=== PATIENT | female | born 1930 | race Caucasian/White ===

== ENCOUNTER 2016-09-05 22:52 | Emergency (ER) | payer OTHER, BC ==
[~2016-09-05] VITALS: Ht 160 cm; Wt 60.3 kg
[~2016-09-05 22:52] MED LIST: ACIDOPHILUS1 EAC3 PO; ADULT LOW DOSE81 MG OR; ADULT LOW DOSE81 MG PO; ANASPAZ0.125 MG PO; ANASPAZ0.125 MG SL; ASPIRIN325 PO; ATIVAN0.5 MG PO; AUGMENTIN 875875 MG PO; AZOR 10-20 MG1 EACH; BISACODYL SUPP10 MG RE; CALCIUM 600 +1 EAC1 PO; CENTRUM SILVER1 EAC4 PO; CIPROFLOXACIN500 M1 PO; CITRATE OF MAG296 ML PO; CLOTRIMAZOLE10 MG PO; CORDARONE200 MG PO; CORTEF 20 MG TA20 M1 PO; CORTEF 20 MG TA20 MG PO; CORTEF PO; CORTEF10 MG PO; CYCLOBENZAPRINE10 MG PO; ELIQUIS2.5 MG PO; ELIQUIS5 MG PO; FENTANYL PA12 MCG/HR TP; FISH OIL 1,0001 EAC5 PO; FISH OIL 1,2001 EAC4 PO; FISHOIL PO; FLEXERIL PO; FUROSEMIDE; FUROSEMIDE 40 M40 M1 PO; HYDROCODON-ACE1 EAC5 PO; HYDROCODON-ACE1 EACH PO; HYDROCODONE-AP1 EAC6 PO; HYDROCORTISONE10 MG PO; HYDROCORTISONE30 G9 PO; KEFLEX500 MG PO; KLOR-CON 1010 MEQ PO; LASIX 20 MG TAB20 MG PO; LASIX 40 MG TAB40 M2 PO; LEVOTHROID PO; LIDODERM 5%1 PATC1 TRANSDERM; LIPITOR20 MG PO; LIPITOR40 MG; LIPITOR80 MG PO; LOPRESSOR25 PO; MACROBID 100 M100 M1 PO; MAG DELAY64 MG PO; MEGESTROL PO; METHOCARBAMOL500 M1 PO; MIACALCIN NS; MILK OF MA2400 MG/10 PO; MIRALAX17 GM PO; MIRALAX255 GM; MOBIC15 MG PO; NAPROSYN500 MG PO; NORCO 10-325 T1 EACH; NORCO 10-325 T1 EACH PO; NORCO 5-325 TA1 EACH PO; NORVASC5 MG PO; NYSTATIN 1100000 U/M OR; ONDANSETRON HCL4 M2 PO; OXYCODONE HCL 55 MG PO; PEPCID AC20 M1 OR; PERCOCET 5-3251 EACH PO; PLAVIX 75 MG TA75 MG PO; POTASSIUM GLUCO99 M1 PO; POTASSIUM99 M1 PO; PRILOSEC 20 MG20 MG PO; PROBIOTIC1 EAC1 PO; PROTONIX40 M1 PO; ROBAXIN500 MG PO; SENOKOT-S1 TA1 PO; SPIRONOLACTONE25 M1 PO; SYNTHROID100 MCG PO; SYNTHROID75 MCG PO; TOBRAMYCIN SULFA5 ML OP; TOPROL XL25 MG PO; TRAMADOL 50 MG50 MG PO; TYLENOL325 MG PO; VALIUM5 MG PO; VANCOMYCIN100 MG/ML PO; VIACTIV SOFT C1 EACH PO; VITAMIN B-12500 MCG PO; VITAMIN B-650 M1 PO; VITAMINC500 PO; ZESTRIL40 MG PO; ZESTRIL5 MG PO; ZOFRAN ODT4 MG PO
[2016-09-05 23:17] LABS: URINE BILIRUBIN NEGATIVE (Negative); URINE BLOOD 3+ (Negative); URINE GLUCOSE-RANDOM* NEGATIVE (Negative); URINE KETONES TRACE (Negative); URINE NITRITE NEGATIVE (Negative); URINE PROTEIN (DIPSTICK) 3+ (Negative); URINE SPECIFIC GRAVITY 1.025 (1.003-1.035); URINE UROBILINOGEN 0.2 E.U./dl (0.2-1.0)
[2016-09-05 23:21] LABS: URINE COLOR RED
[2016-09-05 23:24] LABS: CASTS None Seen /LPF (None Seen); CRYSTALS None Seen /LPF (None Seen); SQUAMOUS 0-3 Few /LPF (0-3); URINE RBC >20 Many /HPF (0-2); URINE WBC >25 Many /HPF (0-5)
[2016-09-05 23:25] LABS: BACTERIA 1-9 Few /HPF (None Seen)
[2016-09-05] MEDS ORDERED: MACROBID 100 M100 M1 PO (23:37)
[2016-09-05] MEDS ORDERED: CENTRUM SILVER1 EAC4 PO (23:46)
[2016-09-05] MEDS ORDERED: VITAMIN B-122500 MCG PO (23:47)
== END 2016-09-05 23:58 | disposition home or self-care (01) ==
LOC: ER 22:52
PROVIDERS: Physician Assistant
DX: N39.0 Urinary tract infection, site not specified (principal); R31.9 Hematuria, unspecified; I25.10 Atherosclerotic heart disease of native coronary artery without angina pectoris; I25.2 Old myocardial infarction; I48.91 Unspecified atrial fibrillation; I10 Essential (primary) hypertension; Z88.8 Allergy status to other drugs, medicaments and biological substances; Z95.9 Presence of cardiac and vascular implant and graft, unspecified; Z90.49 Acquired absence of other specified parts of digestive tract; Z98.890 Other specified postprocedural states

== ENCOUNTER 2017-09-07 10:22 | Inpatient (IN) | payer OTHER, BC ==
[~2017-09-07] VITALS: Ht 160 cm; Wt 64.0 kg
--- NOTE | ~2017-09-07 | HC ---
[facility] [address] CONSULTATION Name: MANISHAHUGO SYED Room #: 406-P ADM IN M.R.#: [id number] Admission: 09/07/17 Attend Phys: Cecy Spears Discharge: Date of : 32 Report #: [id number] THIS REPORT FOR: //name// CC: Arvind Sneed DATE OF SERVICE: 09/07/2017 CHIEF COMPLAINT: Right femoral neck fracture. HISTORY OF PRESENT ILLNESS: This frail, but still alert and ambulatory 87-year-old female has had several recent falls, symptoms of right hip pain that progressed over the past 2 weeks. Now, CT scan confirms a slightly impacted displaced subcapital femoral neck fracture involving the right hip. She is admitted for further treatment. At the time of my evaluation, the patient is alert and cooperative and seems to understand the situation. She is accompanied by her family. They also understand the situation. The right hip is held in a slightly flexed and rotated position, but without much shortening. She does have pain with any attempted movement about the right hip, consistent with a proximal femur fracture. She denies any other areas of significant discomfort. Her CT scan confirms an impacted and slightly angulated fracture of the right femoral neck. I have discussed this at some length with the patient and her family. We reviewed various options including nonsurgical management with careful protection or surgical management with either percutaneous screw stabilization or proximal femoral hemiarthroplasty. They seem to understand the potential advantages and disadvantages well and prefer to proceed with a right proximal femoral hemiarthroplasty procedure. I believe she has been adequately cleared from a general medical point of view. We will plan to proceed with surgery tomorrow morning for right proximal femoral hemiarthroplasty. <ELECTRONICALLY SIGNED> By: Fransisco Triana MD 09/08/17 0936 1834 0808 Fransisco Triana MD /nt
--- NOTE | ~2017-09-07 | O ---
[facility] [place] [address] OPERATIVE REPORT Name: HUGO DYER Room #: 406-P ADM IN M.R.#: [id number] Admission: 09/07/17 Attend Phys: Cecy Spears Discharge: Date of : 32 Report #: [id number] THIS REPORT FOR: //name// CC: Arvind Sneed DATE OF SERVICE: 09/08/2017 PREOPERATIVE DIAGNOSIS: Fracture, right femoral neck. POSTOPERATIVE DIAGNOSIS: Fracture, right femoral neck. PROCEDURE: Proximal femoral hemiarthroplasty, right hip. SURGEON: Fransisco Triana MD INDICATIONS: This 87-year-old female remains mildly active and ambulatory. She fell injuring the right hip. X-rays confirm a femoral neck fracture with impaction and mild displacement. We have discussed treatment options and elected to go ahead with hemiarthroplasty reconstruction. DESCRIPTION OF PROCEDURE: The patient was taken to the operating room, where she was placed under general anesthesia. Prophylactic intravenous antibiotics were administered. She was turned to the left lateral decubitus position. The right hip, thigh, and leg were meticulously prepped and draped. A slightly curving posterolateral skin incision was made. This was carried through fascia, exposing the posterior aspect of the hip joint. The short external rotators and capsule were taken down and tagged with several Tevdek sutures. The femoral neck was found to be fractured and unstable. The head was removed and measured at 45 mm in diameter. The neck was trimmed down to an appropriate level. The canal was opened with reamers and broaches. The Toussaint and Nephew system was utilized and a cemented size 15 stem seemed to fit most appropriately. A trial reduction was performed and the hip was nicely aligned when using a +4 mm neck length and a 45 mm head. The trial component was removed. The canal was thoroughly irrigated and dried. A cement restrictor was placed. Methyl methacrylate cement was mixed and injected into the canal. The Toussaint and Nephew cemented collared size 15 stem was then inserted, placing this in about 15-20 degrees of anteversion. Excess cement was removed from around the collar. A +4 mm neck sleeve and a 45 mm unipolar head was then applied and impacted on to the Rowley taper, the hip was reduced. Alignment, range of motion, stability and leg length were assessed and felt to be satisfactory. The short external rotators were then repaired using the #1 Tevdek sutures passed through drill holes in the greater trochanter. I did not feel Hemovac drain was necessary as the wound seemed to be nicely dry at this point. The fascia was then closed with multiple #1 Vicryl sutures. The subcutaneous tissues were closed with 0 Monocryl[address] The [address] [address] OPERATIVE REPORT Name: HUGO DYER Room #: 406-P [facility] IN M.R.#: [id number] Admission: 09/07/17 Attend Phys: Cecy Spears Discharge: Date of : 32 Report #: [id number] skin was closed with skin luis. A sterile dressing was applied and the patient was returned to recovery room in good condition. <ELECTRONICALLY SIGNED> By: Fransisco Triana MD 09/08/17 1026 0932 0948 Fransisco Triana MD /nt
--- NOTE | ~2017-09-07 | EKG ---
[address] [address] ELECTROCARDIOGRAM REPORT Name: HUGO DYER Room #: 215-P ADM IN M.R.#: [id number] Admission: 09/07/17 Attend Phys: Cecy Spears Discharge: Date of : 32 Report #: [id number] THIS REPORT FOR: //name// [facility] Test Date: 2017-09-13 Test Time: 06:17:46 Pat Name: HUGO DYER Department: Room: 215 P Gender: F Soup Person: KIKI : 1930 Requested By: Aguilar Gutierrez Order Number: [id number] MD: John Diaz Measurements Intervals [place] Rate: 72 P: 1 MD: 165 QRS: 12 QRSD: 87 T: -10 QT: 429 QTc: 470 Interpretive Statements Sinus rhythm Nonspecific T abnormalities, anterior leads Compared to ECG 09/07/2017 11:10:32 T-wave abnormality now present ST (T wave) deviation no longer present Electronically Signed On 09-13-2017 8:14:32 SUPERVISOR RECORDS CHANGE by John Diaz [email or web address] <ELECTRONICALLY SIGNED> By: John Diaz MD 09/13/1714 6 6 John Diaz MD /[facility]
--- NOTE | ~2017-09-07 | 2DMMODE ---
[facility] [address] [place] [address] 2 D/M-MODE ECHOCARDIOGRAM Name: HUGO DYER Room #: 240-P [facility] IN M.R.#: [id number] Admission: 09/07/17 Attend Phys: Arvind Weems Discharge: Date of : 32 Date of Service: 09/14/17 1310 Report #: [id number] THIS REPORT FOR: //name// APPROVED REPORT Study performed: 09/14/2017 11:03:01 EXAM: Comprehensive 2D, Doppler, and color-flow Echocardiogram Patient Location: Bedside Room #: 240 Status: routine BSA: 1.65 HR: 92 bpm BP: 126/82 mmHg Rhythm: NSR Other Information Study Quality: Technically Difficult Technically limited study due to inability to position patient. Indications Status Post Arrest 2D Dimensions RVDd: 36.81 mm LVEF(%): 74.03 (>50%) IVSd: 7.33 (7-11mm) LVOT Diam: 19.35 (18-24mm) LVDd: 39.49 mm PWd: 7.35 (7-11mm) Ascending Ao: 29.48 (22-36mm) LVDs: 22.75 (25-40mm) Aortic Root: 30.43 mm Turcios's LVEF: 74.03 % Volumes Left Atrial Volume (Systole) Single Plane 4CH: 35.83 mL Single Plane 2CH: 75.92 mL Aortic Valve AoV Peak Yovani.: 3.29 m/s AO Peak Gr.: 43.36 mmHg LVOT Max P.83 mmHg AO Mean Gr.: 24.82 mmHg LVOT Mean P.83 mmHg AO V2 Mean: 2.31 m/s LVOT Max V: 0.98 m/s AO V2 VTI: 54.27 cm LVOT Mean V: 0.62 m/s LAURA (VTI): 1.02 cm2 LVOT V1 VTI: 18.79 cm LAURA Vmax: 0.87 cm2 [facility] [address] [place] [address] 2 D/M-MODE ECHOCARDIOGRAM Name: HUGO DYER KUNAL Room #: 240-P [facility] IN .R.#: [id number] Admission: 09/07/17 Attend Phys: Arvind Weems Discharge: Date of : 32 Date of Service: 09/14/17 1310 Report #: [id number] SV (LVOT): 55.21 mL Pulmonary Valve PV Peak Yovani.: 0.90 m/s PV Peak Gr.: 3.28 mmHg Tricuspid Valve TR Peak Yovani.: 2.89 m/s RAP Estimate: 5.00 mmHg TR Peak Gr.: 33.41 mmHg PA Pressure: 38.00 mmHg Left Ventricle The left ventricle is normal size. There is normal left ventricular wall thickness. The left ventricular systolic function is normal. LVEF is 60-65%. Grade I - abnormal relaxation pattern. Right Ventricle The right ventricle is normal size. The right ventricular systolic function is normal. Atria Left atrium is mildly dilated. The right atrium size is normal. Aortic Valve Aortic valve is thickened and calcified. Mild aortic regurgitation. Moderate aortic stenosis. Mitral Valve There is mitral annular calcification. Trace mitral regurgitation. No evidence of mitral valve stenosis. Tricuspid Valve The tricuspid valve is normal in structure. Mild tricuspid regurgitation. Estimated PAP 38 mmHg. Pulmonic Valve The pulmonary valve is normal in structure. There is no pulmonic valvular regurgitation. Great Vessels The aortic root is normal in size. The ascending aorta is normal in size. IVC is normal in size and collapses >50% with inspiration. Pericardium There is no pericardial effusion. [facility] [address] [place] [address] 2 D/M-MODE ECHOCARDIOGRAM Name: MANISHAHUGO Room #: 240-P [facility] IN ..#: [id number] Admission: 09/07/17 Attend Phys: Arvind Weems Discharge: Date of : 32 Date of Service: 09/14/17 1310 Report #: [id number] <Conclusion> The left ventricle is normal size. LVEF is 60-65%. Grade I - abnormal relaxation pattern. Grade I - abnormal relaxation pattern. The right ventricle is normal size. Left atrium is mildly dilated. The right atrium size is normal. Mild aortic regurgitation. Moderate aortic stenosis. Trace mitral regurgitation. IVC is normal in size and collapses >50% with inspiration. There is no pericardial effusion. <ELECTRONICALLY SIGNED> By: Aguilar Gutierrez MD, FACC 09/14/17 131 09 09 Aguilar Gutierrez MD, FACC /INF
--- NOTE | ~2017-09-07 | EKG ---
[place] [address] [facility] [place] [address] ELECTROCARDIOGRAM REPORT Name: MANISHAHUGO Room #: 240-P ADM IN M.R.#: [id number] Admission: 09/07/17 Attend Phys: Cecy Spears Discharge: Date of : 32 Report #: [id number] THIS REPORT FOR: //name// [facility] Test Date: 2017-09-14 Test Time: 09:25:47 Pat Name: HUGO DYER Department: Room: 240 Gender: F Career Law Clerk: KIKI : 1930 Requested By: Gloria Carlson Order Number: [id number] MD: Justo Owen Measurements Intervals [place] Rate: 92 P: 68 OH: 177 QRS: 17 QRSD: 106 T: 12 QT: 371 QTc: 459 Interpretive Statements Sinus rhythm Multiple ventricular premature complexes Nonspecific ST and T wave abnormality Compared to ECG 09/13/2017 06:17:46 Ventricular premature complex(es) now present Electronically Signed On 09-14-2017 18:26:40 SENIOR COPYWRITER by Justo Owen [email or web address] <ELECTRONICALLY SIGNED> By: Justo Owen MD, [facility] 09/14/17 1826 Justo Owen MD, [facility] /EPI
--- NOTE | ~2017-09-07 | EKG ---
[place] [address] [facility] [place] [address] ELECTROCARDIOGRAM REPORT Name: BORA DYERAUNG KUNAL Room #: 170-11 ADM IN M.R.#: [id number] Admission: 09/07/17 Attend Phys: Cecy Spears Discharge: Date of : 32 Report #: [id number] THIS REPORT FOR: //name// [facility] ED Test Date: 2017-09-07 Test Time: 11:10:32 Pat Name: HUGO DYER Department: Room: 170 Gender: F Ranch Hand Supervisor: JUANY : 1930 Requested By: Rebel Mendez Order Number: [id number] MD: Justo Owen Measurements Intervals [place] Rate: 75 P: 39 SD: 189 QRS: -8 QRSD: 81 T: 37 QT: 415 QTc: 464 Interpretive Statements Sinus rhythm Minimal ST depression, anterolateral leads Compared to ECG 07/03/2016 15:05:39 ST (T wave) deviation now present Electronically Signed On 09-07-2017 16:05:39 PERSONAL CHEF by Justo Owen [email or web address] <ELECTRONICALLY SIGNED> By: Justo Owen MD, [facility] 09/07/17 1605 1110 1110 Justo Owen MD, [facility] /EPI
--- NOTE | ~2017-09-07 | HC ---
[facility] [place] [address] CONSULTATION Name: HUGO DYER Room #: 420-P [facility] IN M.R.#: [id number] Admission: 09/07/17 Attend Phys: Cecy Spears Discharge: 09/17/17 Date of : 32 Report #: [id number] THIS REPORT FOR: //name// CC: Arvind Gutierrez MD [facility] DATE OF SERVICE: 09/14/2017 REFERRING PROVIDER: Dr. Aguilar Gutierrez. REASON FOR CONSULTATION: Status post arrest. HISTORY OF PRESENT ILLNESS: Our group was called stat overhead throughout the hospital to attend the patient at the bedside. We responded to this call. The patient had received 2 chest compressions for what appeared to be an arrest. The patient was unresponsive. The exact etiology of this unresponsiveness is unknown. The patient was to be discharged to rehab today after recent right hip total arthroplasty after right hip fracture. The patient has been anticoagulated with enoxaparin 30 mg daily as a prophylaxis. The patient had been also managed by Cardiology Service for atrial fibrillation with rapid ventricular response. When we responded the patient was arousable, had a blood pressure and was in a stable rhythm with a heart rate of about 100. The patient stated she was hurting all over. Denied any cough or shortness of breath at that time. She did have some abdominal tenderness, but no other complaints. The patient apparently had been in her usual state of health only on 2 liters nasal cannula just moments prior to this event. Post-event, the patient is alert and in no distress and hemodynamically stable. ALLERGIES: INCLUDE IV CONTRAST DYE, NIACIN AND BENADRYL. PAST MEDICAL HISTORY: 1. Atrial fibrillation with rapid ventricular response, currently on amiodarone and diltiazem for rate control. 2. Degenerative arthritis. 3. Hypertension. 4. Hypothyroidism. 5. Gastroesophageal reflux disease. 6. Hyperlipidemia. 7. Coronary artery disease with prior stenting in 2009 with unclear vessel. 8. History of multiple vertebral compression fractures with radiographic findings of repair with vertebroplasty. 9. History of adrenal insufficiency, on chronic hydrocortisone. 10. Questionable ischemic colitis in the remote past. [facility] [address] [place] [address] CONSULTATION Name: HUGO DYER Room #: 420-P [facility] IN [facility].#: [id number] Admission: 09/07/17 Attend Phys: Cecy Spears Discharge: 09/17/17 Date of : 32 Report #: [id number] PAST SURGICAL HISTORY: Includes appendectomy, cholecystectomy. SOCIAL HISTORY: Currently lives independently. No alcohol or tobacco use. FAMILY HISTORY: Unobtainable due to her current status. REVIEW OF SYSTEMS: Other than the generalized pain, difficult to obtain at this time due to her current status. PHYSICAL EXAMINATION: VITAL SIGNS: Afebrile, pulse 80s and regular, respiratory rate 16, blood pressure 125/71, oxygen saturation 99% on 4 liters. GENERAL: This is an elderly woman who is awake, does not appear in any distress. ENT: Clear oropharynx. No thrush or erythema. NECK: Supple, no lymphadenopathy. LUNGS: Clear. I do not hear any wheezes or crackles. CARDIOVASCULAR: Heart was irregular, but no murmurs noted. ABDOMEN: Soft. Diffuse abdominal tenderness noted. EXTREMITIES: Revealed dressing over the right hip with only trace edema in the lower extremities. LABORATORY DATA: Chest radiograph performed post arrest reveals diminished lung volumes and basilar atelectasis and some mild cardiomegaly. No significant infiltrates or effusions, nothing for significant pulmonary edema appreciated. White blood cell count was 19,000, hemoglobin 11, hematocrit 34, platelet count 274. Sodium 138, potassium 3.0, chloride 102, bicarbonate 25, BUN 22, creatinine 1.2, glucose 125. Liver enzymes okay. Troponin mildly elevated at 0.25. Arterial blood gas while being bagged revealed pH 7.49, pCO2 of 27, pO2 of 120, bicarbonate of 20. INR is 1.0. D-dimer is 12.94. Recent urinalysis grew E. coli from specimens from 09/05/2017. IMPRESSION: 1. Status post arrest of unclear etiology. The patient only had brief chest compressions. I was told by nursing only 2 compressions total. Venous thromboembolism would be the biggest concern given her recent hip surgery and hospital stay. Would cover with full dose anticoagulant therapy, check lower extremity venous Dopplers, echocardiogram to evaluate right ventricular function and check ventilation perfusion scan given her essentially clear x-ray and contrast allergy. 2. Possible urinary tract infection based on recent urinalysis. Would check urine and blood cultures. 3. Leukocytosis. 4. Recent right total hip arthroplasty after right hip fracture. 5. Remote history of coronary artery disease. 6. Atrial fibrillation. [facility] [address] [place] [address] CONSULTATION Name: HUGO DYER Room #: 420-P [facility] IN M.R.#: [id number] Admission: 09/07/17 Attend Phys: Cecy Spears Discharge: 09/17/17 Date of : 32 Report #: [id number] 7. Aortic stenosis. 8. Hypothyroidism. SUGGESTIONS: As outlined above. Total critical care time was 35 minutes to this point, discussion with healthcare providers evaluating patient and additional care. <ELECTRONICALLY SIGNED> By: Pawan Canchola MD 09/26/17 1535 1128 1746 Pawan Canchola MD /nt
--- NOTE | ~2017-09-07 | H ---
[facility] [place] [address] HISTORY AND PHYSICAL Name: HUGO DYER Room #: 406-P ADM IN M.R.#: [id number] Admission: 09/07/17 Attend Phys: Cecy Spears Discharge: Date of : 32 Report #: [id number] THIS REPORT FOR: //name// CC: Arvind Sneed DATE OF SERVICE: 09/07/2017 CHIEF COMPLAINT: Right leg pain. HISTORY OF PRESENT ILLNESS: The patient is an 87-year-old female who presented to the Emergency Room after suffering a fall earlier today. She apparently was out on her driveway when she turned her head and she lost her balance and went to the ground. She felt pain in the right leg and was unable to stand or walk. She had to crawl to the house until a friend saw her and came out to help. She denies any loss of consciousness, dizziness or lightheadedness leading up to the episode. X-rays have revealed impacted right subcapital femoral neck fracture. PAST MEDICAL HISTORY: Degenerative arthritis, osteoporosis, hypertension, hypothyroidism, gastroesophageal reflux, dyslipidemia, remote history of coronary artery disease with stent 2009, vertebral compression fractures, adrenal insufficiency. There was a questionable history of ischemic colitis in September 2014. PAST SURGICAL HISTORY: Appendectomy, cholecystectomy in 2014. FAMILY HISTORY: Noncontributory. SOCIAL HISTORY: She lives at home. No chronic alcohol or tobacco use. ALLERGIES: BENADRYL, NIACIN. MEDICATIONS: Aldactone 25 mg, metoprolol ER 25 mg half tab, Lipitor 40 mg, Lasix 40 mg as needed, hydrocortisone 20 mg in the morning and half tab at night, hydrocodone 5 mg as needed, Ativan 0.5 mg as needed, Levoxyl 50 mcg, calcium plus D, aspirin 325 mg, fish oil, vitamin C, magnesium. REVIEW OF SYSTEMS: She complains of pain, otherwise no headache, chest pain, shortness of breath, abdominal pain, nausea, vomiting, diarrhea, constipation, dysuria, syncope. OBJECTIVE: VITAL SIGNS: Pulse 80, respirations 18, blood pressure 124/75, O2 sat 94% on room air. GENERAL: She is awake and alert, lying in bed. She is oriented to place and situation, recognizes me. HEAD AND NECK: Unremarkable. [address] [address] HISTORY AND PHYSICAL Name: HUGO DYER Room #: [address] [place] [address] IN M.R.#: [id number] Admission: 09/07/17 Attend Phys: Cecy Spears Discharge: Date of : 32 Report #: [id number] LUNGS: Clear. HEART: Regular. ABDOMEN: Soft, normoactive bowel sounds. EXTREMITIES: No edema. NEUROLOGIC: Motor strength 3-4/5 throughout, limited in the right leg due to pain. Lab and x-rays reviewed. ASSESSMENT: 1. Right intertrochanteric proximal femur fracture. 2. Hypertension. 3. Adrenal insufficiency. 4. Remote history of coronary artery disease. PLAN: She is medically cleared to proceed with surgery at this point and Dr. Triana has been consulted. I will use stress dose hydrocortisone until postop and then will switch her back to her oral replacement. I will ask Dr. Gutierrez to see her who knows her well, although it seems her heart disease has been well controlled recently. <ELECTRONICALLY SIGNED> By: Fransisco Snyder MD 09/08/17 1031 1500 1542 Fransisco Snyder MD /nt
[~2017-09-07 10:22] MED LIST changes: +VITAMIN B-122500 MCG PO
[2017-09-07 10:25] VITALS: BP 136/66
[2017-09-07] MEDS ORDERED: ASPIRIN325 PO (10:42)
[2017-09-07 11:03] LABS: HEMATOCRIT 40.8 % (37.0-47.0); HEMOGLOBIN 13.8 gm/dL (12.0-15.0); MCH 34.1 pg (26.0-34.0); MCHC 33.8 g/dL (28.0-37.0); MCV 100.9 fL (80.0-100.0); RBC 4.05 mil/uL (4.20-5.00); RDW 14.3 % (10.5-14.5); WBC 12.4 thou/uL (4.0-11.0)
[2017-09-07 11:07] LABS: CALCIUM 9.5 mg/dL (8.5-10.1); CREATININE 1.1 mg/dL (0.6-1.0); POTASSIUM 3.6 mmol/L (3.5-5.1)
[2017-09-07 11:16] LABS: TROPONIN-I 0.05 ng/mL (<0.06)
[2017-09-07 11:17] LABS: APTT 20.8 Seconds (24.5-32.8); PROTIME 10.4 Seconds (9.3-11.4)
[2017-09-07 16:38] VITALS: BP 94/54
[2017-09-07 16:43] VITALS: BP 102/54
[2017-09-07 20:00] VITALS: BP 112/54
[2017-09-08] VITALS (8 sets, daily range): BP systolic 103–115; BP diastolic 54–76
[2017-09-08 04:55] LABS: CALCIUM 8.4 mg/dL (8.5-10.1); CREATININE 1.5 mg/dL (0.6-1.0); POTASSIUM 4.1 mmol/L (3.5-5.1)
[2017-09-08 05:31] LABS: HEMATOCRIT 39.5 % (37.0-47.0); HEMOGLOBIN 13.2 gm/dL (12.0-15.0); MCH 33.9 pg (26.0-34.0); MCHC 33.3 g/dL (28.0-37.0); MCV 101.6 fL (80.0-100.0); RBC 3.89 mil/uL (4.20-5.00); RDW 14.9 % (10.5-14.5)
[2017-09-09] VITALS: BP 108/60
[2017-09-09 04:00] VITALS: BP 101/57
[2017-09-09 04:12] LABS: HEMATOCRIT 32.8 % (37.0-47.0); MCH 34.6 pg (26.0-34.0); MCHC 34.3 g/dL (28.0-37.0); MCV 101.1 fL (80.0-100.0); RBC 3.24 mil/uL (4.20-5.00); RDW 14.6 % (10.5-14.5); WBC 18.2 thou/uL (4.0-11.0)
[2017-09-09 04:21] LABS: CALCIUM 7.9 mg/dL (8.5-10.1); CREATININE 1.3 mg/dL (0.6-1.0)
[2017-09-09 04:36] LABS: HEMOGLOBIN 11.2 gm/dL (12.0-15.0)
[2017-09-09 07:23] VITALS: BP 117/64
[2017-09-09 16:38] VITALS: BP 104/56
[2017-09-09 19:00] VITALS: BP 103/65
[2017-09-10 04:00] VITALS: BP 122/71
[2017-09-10 04:17] LABS: HEMATOCRIT 29.5 % (37.0-47.0); MCH 34.4 pg (26.0-34.0); MCV 101.2 fL (80.0-100.0); RBC 2.92 mil/uL (4.20-5.00); RDW 14.3 % (10.5-14.5); WBC 12.4 thou/uL (4.0-11.0)
[2017-09-10 04:25] LABS: CALCIUM 7.7 mg/dL (8.5-10.1); CREATININE 1.1 mg/dL (0.6-1.0); POTASSIUM 3.5 mmol/L (3.5-5.1)
[2017-09-10 08:00] VITALS: BP 113/66
[2017-09-10 12:00] VITALS: BP 121/64
[2017-09-10 17:15] VITALS: BP 94/56
[2017-09-10 19:43] VITALS: BP 99/54
[2017-09-11 02:58] VITALS: BP 111/66
[2017-09-11 03:46] VITALS: BP 141/77
[2017-09-11 05:51] LABS: CALCIUM 8.4 mg/dL (8.5-10.1); POTASSIUM 3.9 mmol/L (3.5-5.1)
[2017-09-11 08:00] VITALS: BP 119/47
[2017-09-11 12:50] VITALS: BP 133/68
[2017-09-11 16:00] VITALS: BP 124/64
[2017-09-11 19:29] VITALS: BP 101/51
[2017-09-12 00:17] VITALS: BP 134/57
[2017-09-12 04:00] VITALS: BP 112/64
[2017-09-12 06:20] LABS: HEMATOCRIT 28.3 % (37.0-47.0); HEMOGLOBIN 9.8 gm/dL (12.0-15.0); MCH 34.8 pg (26.0-34.0); MCHC 34.5 g/dL (28.0-37.0); RBC 2.81 mil/uL (4.20-5.00); RDW 14.6 % (10.5-14.5)
[2017-09-12 06:39] LABS: CALCIUM 8.2 mg/dL (8.5-10.1); CREATININE 0.9 mg/dL (0.6-1.0); POTASSIUM 3.6 mmol/L (3.5-5.1)
[2017-09-12 09:15] VITALS: BP 94/56
[2017-09-12 10:52] VITALS: BP 101/64
[2017-09-12 16:00] VITALS: BP 108/63
[2017-09-12 19:33] VITALS: BP 115/57
[2017-09-13 00:12] VITALS: BP 117/67
[2017-09-13 04:02] VITALS: BP 123/75
[2017-09-13 08:30] VITALS: BP 113/52
[2017-09-13 12:47] VITALS: BP 106/58
[2017-09-13 15:34] VITALS: BP 116/46
[2017-09-13 20:23] VITALS: BP 155/88
[2017-09-14] VITALS (26 sets, daily range): BP systolic 79–140; BP diastolic 41–120
[2017-09-14 03:54] LABS: HEMATOCRIT 31.7 % (37.0-47.0); HEMOGLOBIN 10.8 gm/dL (12.0-15.0); MCV 100.1 fL (80.0-100.0); RBC 3.17 mil/uL (4.20-5.00); RDW 14.7 % (10.5-14.5); WBC 12.1 thou/uL (4.0-11.0)
[2017-09-14 04:03] LABS: CALCIUM 8.1 mg/dL (8.5-10.1); POTASSIUM 3.1 mmol/L (3.5-5.1)
[2017-09-14 09:15] LABS: BE(vivo) -1.4 mmol/L (-2 to +3); HCO3 20.4 mmol/L (22.0-26.0); PCO2 27.3 mmHg (35.0-45.0); PO2 119.7 mmHg (80.0-100.0); pH 7.491 (7.360-7.450); sO2 98.7 % (92.0-98.0)
[2017-09-14 09:19] LABS: HEMATOCRIT 33.5 % (37.0-47.0); HEMOGLOBIN 11.2 gm/dL (12.0-15.0); MCH 33.7 pg (26.0-34.0); MCHC 33.3 g/dL (28.0-37.0); MCV 101.4 fL (80.0-100.0); RBC 3.31 mil/uL (4.20-5.00); RDW 14.5 % (10.5-14.5); WBC 19.4 thou/uL (4.0-11.0)
[2017-09-14 09:29] LABS: CALCIUM 8.5 mg/dL (8.5-10.1); CREATININE 1.2 mg/dL (0.6-1.0)
[2017-09-14 09:34] LABS: PROTIME 10.3 Seconds (9.3-11.4)
[2017-09-14 09:36] LABS: ALBUMIN 2.5 g/dL (3.4-5.0); TOTAL BILIRUBIN 0.9 mg/dL (<0.1-1.0); TOTAL PROTEIN 5.8 g/dL (6.4-8.2); TROPONIN-I 0.25 ng/mL (<0.06)
[2017-09-14 09:42] LABS: D-DIMER 12.94 ug/mLFEU (0.19-0.50)
[2017-09-14 13:42] LABS: URINE BILIRUBIN NEGATIVE (Negative); URINE BLOOD NEGATIVE (Negative); URINE CLARITY CLEAR; URINE COLOR YELLOW; URINE GLUCOSE-RANDOM* NEGATIVE (Negative); URINE KETONES NEGATIVE (Negative); URINE LEUKOCYTES-REFLEX NEGATIVE (Negative); URINE NITRITE-REFLEX NEGATIVE (Negative); URINE PROTEIN (DIPSTICK) NEGATIVE (Negative)
[2017-09-15] VITALS (46 sets, daily range): BP systolic 83–129; BP diastolic 39–113
[2017-09-15 04:50] LABS: HEMATOCRIT 29.9 % (37.0-47.0); MCH 33.7 pg (26.0-34.0); MCHC 33.5 g/dL (28.0-37.0); MCV 100.8 fL (80.0-100.0); RBC 2.97 mil/uL (4.20-5.00); RDW 14.6 % (10.5-14.5); WBC 18.4 thou/uL (4.0-11.0)
[2017-09-15 04:59] LABS: CALCIUM 8.5 mg/dL (8.5-10.1); CREATININE 1.2 mg/dL (0.6-1.0); POTASSIUM 3.6 mmol/L (3.5-5.1)
[2017-09-16] VITALS (21 sets, daily range): BP systolic 96–142; BP diastolic 38–107
[2017-09-16 09:43] LABS: HEMATOCRIT 32.3 % (37.0-47.0); HEMOGLOBIN 10.9 gm/dL (12.0-15.0); MCH 33.8 pg (26.0-34.0); MCHC 33.6 g/dL (28.0-37.0); MCV 100.6 fL (80.0-100.0); RBC 3.21 mil/uL (4.20-5.00); RDW 14.9 % (10.5-14.5); WBC 14.8 thou/uL (4.0-11.0)
[2017-09-16 09:52] LABS: CALCIUM 8.8 mg/dL (8.5-10.1)
[2017-09-16 09:54] LABS: POTASSIUM 2.9 mmol/L (3.5-5.1)
[2017-09-17] VITALS: BP 119/58
[2017-09-17 04:31] VITALS: BP 127/68
[2017-09-17 04:44] LABS: HEMATOCRIT 29.8 % (37.0-47.0); MCH 33.7 pg (26.0-34.0); MCHC 33.6 g/dL (28.0-37.0); MCV 100.3 fL (80.0-100.0); RBC 2.97 mil/uL (4.20-5.00); RDW 14.8 % (10.5-14.5); WBC 10.9 thou/uL (4.0-11.0)
[2017-09-17 04:50] LABS: CALCIUM 8.6 mg/dL (8.5-10.1); POTASSIUM 3.7 mmol/L (3.5-5.1)
[2017-09-17 07:53] VITALS: BP 125/55
[2017-09-17 08:54] VITALS: BP 125/55
[2017-09-17] MEDS ORDERED: ENOXAPARIN60 MG/0.1 SUBQ (09:45)
[2017-09-17] MEDS ORDERED: PACERONE 200 M200 M1 PO (09:46)
[2017-09-17] MEDS ORDERED: CARDIZEM CD180 MG PO (09:46)
[2017-09-17] MEDS ORDERED: HYDROCODONE-AP1 EAC6 PO (09:47)
[2017-09-17] MEDS ORDERED: ACETAMINOPHEN325 M1 PO (09:48)
[2017-09-17] MEDS ORDERED: LORAZEPAM 0.50.5 M1 PO (09:49)
[2017-09-17] MEDS ORDERED: KLOR-CON M2020 MEQ PO (09:49)
[2017-09-17] MEDS ORDERED: PROTONIX40 M1 PO (09:50)
[2017-09-17] MEDS ORDERED: MIRALAX17 GM PO (09:50)
[2017-09-17] MEDS ORDERED: COLACE100 MG PO (09:50)
[2017-09-17] MEDS ORDERED: LASIX 20 MG TAB20 MG PO (09:50)
[2017-09-17] MEDS ORDERED: ONDANSETRON HCL4 M1 PO (09:51)
[2017-09-17] MEDS ORDERED: HYDROCORTISONE10 MG PO ×2 (09:51→09:52)
[2017-09-17] MEDS ORDERED: SYNTHROID50 MCG PO (09:52)
[2017-11-29] MEDS ORDERED: HYDROCORTISONE10 MG PO (12:42)
[2017-11-29] MEDS ORDERED: MAGBID ER84 MG PO (12:43)
[2017-11-29] MEDS ORDERED: CORTEF 20 MG TA20 MG PO (12:43)
[2017-11-29] MEDS ORDERED: ELIQUIS2.5 MG PO (13:02)
[2017-11-29] MEDS ORDERED: PACERONE 200 M200 M1 PO (13:03)
[2017-11-29] MEDS ORDERED: OMEPRAZOLE20 MG PO (13:03)
[2017-12-09] MEDS ORDERED: DURAGESIC25 MCG/HR TRANSDERM (09:20)
[2017-12-09] MEDS ORDERED: VANCOMYCIN HCL10 GM PO (09:20)
[2017-12-09] MEDS ORDERED: OXYCODONE HCL 55 MG PO (09:20)
== END 2017-09-17 13:06 | DRG 469 ==
LOC: ER 10:22 → 4N 12:12 → EROBS 12:12 → 4N 16:42 → 2N 09-12 09:06 → ICU 09-14 09:47 → 4E 09-16 16:52
PROVIDERS: Emergency Medicine; Internal Medicine; Internal Medicine Gastroenterology; Internal Medicine Geriatric Medicine; Internal Medicine Pulmonary Disease; Orthopaedic Surgery
PROC: 0SRR0J9 Replacement of Right Hip Joint, Femoral Surface with Synthetic Substitute, Cemented, Open Approach (ICD-10-PCS; principal; 2017-09-08)
PROC: 5A12012 Performance of Cardiac Output, Single, Manual (ICD-10-PCS; 2017-09-16)
DX: S72.011A Unspecified intracapsular fracture of right femur, initial encounter for closed fracture (principal); N17.0 Acute kidney failure with tubular necrosis; J96.01 Acute respiratory failure with hypoxia; E27.40 Unspecified adrenocortical insufficiency; S72.141A Displaced intertrochanteric fracture of right femur, initial encounter for closed fracture; M19.90 Unspecified osteoarthritis, unspecified site; M81.0 Age-related osteoporosis without current pathological fracture; I10 Essential (primary) hypertension; E03.9 Hypothyroidism, unspecified; K21.9 Gastro-esophageal reflux disease without esophagitis; E78.5 Hyperlipidemia, unspecified; W19.XXXA Unspecified fall, initial encounter; I25.10 Atherosclerotic heart disease of native coronary artery without angina pectoris; H26.9 Unspecified cataract; D72.829 Elevated white blood cell count, unspecified; I35.0 Nonrheumatic aortic (valve) stenosis; I48.0 Paroxysmal atrial fibrillation; Z90.49 Acquired absence of other specified parts of digestive tract; Z90.89 Acquired absence of other organs; Z88.8 Allergy status to other drugs, medicaments and biological substances; Y99.8 Other external cause status; Z95.5 Presence of coronary angioplasty implant and graft; Z79.899 Other long term (current) drug therapy; Y93.89 Activity, other specified; Y92.89 Other specified places as the place of occurrence of the external cause; I25.2 Old myocardial infarction; Z87.01 Personal history of pneumonia (recurrent); Z23 Encounter for immunization
CPT/HCPCS: 10078; 10783; 10790; 10797; 50010; 50101; 50382; 50414; 51057; 51130; 51225; 51412; 53000; 53366; 56521; 56525; 56527; 62110; 62900; 70005

== ENCOUNTER → 2017-10-12 | Outpatient (CLI) | payer OTHER, BC ==
[~2017-10-12] MED LIST changes: +ACETAMINOPHEN325 M1 PO; +ALBUTEROL2.5 MG/0.5 INH; +ALDACTONE50 MG PO; +ASPIR 8181 MG PO; +CARDIZEM CD180 MG PO; +CIPRO500 MG PO; +CLOTRIMAZOLE10 MG DISSOLVE; +COLACE100 MG PO; +DEMADEX20 MG PO; +DURAGESIC25 MCG/HR TRANSDERM; +ENOXAPARIN60 MG/0.1 SUBQ; +KEFLEX500 M1 PO; +KLOR-CON M2020 MEQ PO; +LORAZEPAM 0.50.5 M1 PO; +MAGBID ER84 MG PO; +OMEPRAZOLE20 MG PO; +ONDANSETRON HCL4 M1 PO; +PACERONE 200 M200 M1 PO; +PREDNISONE 20 M20 MG PO; +SYNTHROID50 MCG PO; +VANCOMYCIN HCL10 GM PO; +ZOFRAN ODT8 MG PO
== END ==
LOC: CAT 07:36
DX: H53.8 Other visual disturbances (principal); H54.7 Unspecified visual loss; E27.40 Unspecified adrenocortical insufficiency; I25.10 Atherosclerotic heart disease of native coronary artery without angina pectoris; I48.0 Paroxysmal atrial fibrillation; I25.2 Old myocardial infarction; Z90.49 Acquired absence of other specified parts of digestive tract

== ENCOUNTER 2017-11-26 08:05 | Emergency (ER) | payer OTHER, BC ==
[~2017-11-26] VITALS: Ht 170.2 cm; Wt 61.2 kg
--- NOTE | ~2017-11-26 | EKG ---
[place] [address] [email or web address] [place] [address] ELECTROCARDIOGRAM REPORT Name: HUGO DYER [facility] [id number] Admission: 11/26/17 Attend Phys: Discharge: 11/26/17 Date of : 32 Report #: [id number] THIS REPORT FOR: //name// [facility] ED Test Date: 2017-11-26 Test Time: 08:26:56 Pat Name: HUGO DYER Department: Room: Gender: F Phlebotomist Medical Lab Assistant: [facility] : 1930 Requested By: Rober David Order Number: [id number] MD: John Diaz Measurements Intervals [place] Rate: 76 P: 31 OH: 198 QRS: 3 QRSD: 88 T: 25 QT: 411 QTc: 463 Interpretive Statements Sinus rhythm Compared to ECG 09/14/2017 09:25:47 Ventricular premature complex(es) no longer present ST (T wave) deviation no longer present Electronically Signed On 11-26-2017 12:17:53 CDT by John Diaz [email or web address] <ELECTRONICALLY SIGNED> By: John Diaz MD 11/26/17 1217 5 5 John Diaz MD /JOHN
[~2017-11-26 08:05] MED LIST changes: -ALBUTEROL2.5 MG/0.5 INH; -ALDACTONE50 MG PO; -ASPIR 8181 MG PO; -CIPRO500 MG PO; -CLOTRIMAZOLE10 MG DISSOLVE; -DEMADEX20 MG PO; -DURAGESIC25 MCG/HR TRANSDERM; -KEFLEX500 M1 PO; -MAGBID ER84 MG PO; -OMEPRAZOLE20 MG PO; -PREDNISONE 20 M20 MG PO; -VANCOMYCIN HCL10 GM PO; -ZOFRAN ODT8 MG PO
[2017-11-26 09:16] LABS: ABSOLUTE NEUTROPHILS 7.3 thou/uL (1.4-8.2); BASOPHILS 1.5 % (0.0-2.0); EOSINOPHILS 1.1 % (0.0-3.0); HEMATOCRIT 33.6 % (37.0-47.0); HEMOGLOBIN 11.3 gm/dL (12.0-15.0); LYMPHOCYTES 15.5 % (24.0-44.0); MCH 31.8 pg (26.0-34.0); MCHC 33.7 g/dL (28.0-37.0); MCV 94.3 fL (80.0-100.0); MONOCYTES 11.6 % (1.0-8.0); PLATELET COUNT 270 thou/uL (150-400); POLYS 70.3 % (36.0-66.0); RBC 3.56 mil/uL (4.20-5.00); RDW 15.5 % (10.5-14.5); WBC 10.3 thou/uL (4.0-11.0)
[2017-11-26 09:24] LABS: ANION GAP 8 mmol/L (7-16); BUN 23 mg/dL (7-18); CHLORIDE 103 mmol/L (98-107); CO2 28 mmol/L (21-32); CREATININE 1.4 mg/dL (0.6-1.0); GLUCOSE 92 mg/dL (74-106); POTASSIUM 3.4 mmol/L (3.5-5.1); SODIUM 139 mmol/L (136-145)
[2017-11-26 09:34] LABS: ALBUMIN 3.4 g/dL (3.4-5.0); LIPASE 88 U/L (73-393); MAGNESIUM 2.2 mg/dL (1.8-2.4); SGOT 18 U/L (15-37); SGPT 17 U/L (30-65); TOTAL BILIRUBIN 0.6 mg/dL (<0.1-1.0); TOTAL PROTEIN 6.4 g/dL (6.4-8.2); TROPONIN-I < 0.04 ng/mL (<0.06)
[2017-11-26] MEDS ORDERED: ZOFRAN ODT8 MG PO (10:42)
[2017-11-26 10:46] LABS: URINE BILIRUBIN NEGATIVE (Negative); URINE BLOOD TRACE (Negative); URINE CLARITY CLEAR; URINE COLOR YELLOW; URINE GLUCOSE-RANDOM* NEGATIVE (Negative); URINE KETONES NEGATIVE (Negative); URINE NITRITE-REFLEX NEGATIVE (Negative); URINE PROTEIN (DIPSTICK) TRACE (Negative); URINE UROBILINOGEN 0.2 E.U./dl (0.2-1.0)
[2017-11-26 10:47] LABS: URINE LEUKOCYTES-REFLEX 1+ (Negative)
[2017-11-26] MEDS ORDERED: KEFLEX500 M1 PO (10:49)
[2017-11-26 10:58] LABS: BACTERIA-REFLEX >30 Many /HPF (None Seen); CASTS None Seen /LPF (None Seen); CRYSTALS None Seen /LPF (None Seen); SQUAMOUS 0-3 Few /LPF (0-3); URINE RBC 0-2 Rare /HPF (0-2); URINE WBC-REFLEX >25 Many /HPF (0-5)
[2017-11-26] MEDS ORDERED: PREDNISONE 20 M20 MG PO (11:53)
[2017-11-29] MEDS ORDERED: HYDROCORTISONE10 MG PO (12:42)
[2017-11-29] MEDS ORDERED: MAGBID ER84 MG PO (12:43)
[2017-11-29] MEDS ORDERED: CORTEF 20 MG TA20 MG PO (12:43)
[2017-11-29] MEDS ORDERED: ELIQUIS2.5 MG PO (13:02)
[2017-11-29] MEDS ORDERED: OMEPRAZOLE20 MG PO (13:03)
[2017-11-29] MEDS ORDERED: PACERONE 200 M200 M1 PO (13:03)
== END 2017-11-26 12:16 | disposition home or self-care (01) ==
LOC: ER 08:05
PROVIDERS: Emergency Medicine
DX: R07.89 Other chest pain (principal); N39.0 Urinary tract infection, site not specified; R11.2 Nausea with vomiting, unspecified; R50.9 Fever, unspecified; G89.29 Other chronic pain; I25.10 Atherosclerotic heart disease of native coronary artery without angina pectoris; I10 Essential (primary) hypertension; I48.91 Unspecified atrial fibrillation; I25.2 Old myocardial infarction; Z87.01 Personal history of pneumonia (recurrent)

== ENCOUNTER → 2017-11-29 | Outpatient (CLI) | payer OTHER, BC ==
[~2017-11-29] VITALS: Ht 160 cm; Wt 63.0 kg
[~2017-11-29] MED LIST changes: +ALBUTEROL2.5 MG/0.5 INH; +ASPIR 8181 MG PO; +CIPRO500 MG PO; +CLOTRIMAZOLE10 MG DISSOLVE; +DURAGESIC25 MCG/HR TRANSDERM; +KEFLEX500 M1 PO; +MAGBID ER84 MG PO; +OMEPRAZOLE20 MG PO; +PREDNISONE 20 M20 MG PO; +VANCOMYCIN HCL10 GM PO; +ZOFRAN ODT8 MG PO
--- NOTE | ~2017-11-29 | HPC ---
[facility] [address] [place] [address] PAIN MANAGEMENT CONSULTATION Name: HUGO DYER Derrick Room #: REG [facility].#: [id number] Admission: 11/29/17 Attend Phys: Андрей Blake DO Discharge: Date of : 32 Report #: [id number] THIS REPORT FOR: //name// CC: Chauncey Blake DATE OF SERVICE: 11/29/2017 REFERRING PHYSICIAN: Chauncey Sneed MD CHIEF COMPLAINT: Mid back pain status post fall. HISTORY OF PRESENT ILLNESS: As you know, the patient is an 87-year-old female who began experiencing increasing mid back pain that presented in November 2017. The patient states she sustained a fall around 11/13/2017. She indicates this fall did ultimately lead her to the emergency department where she was actually imaged in the abdomen area. Apparently, the patient was offering information that was concerning for abdominal issues. No x-ray imaging or imaging was obtained of the upper back area. She indicates that her pain is improved with extension of the thoracic kyphosis. She indicates that workup at the emergency department provided no definitive treatment. She was advised to return to see her PCP. She comes to us today with no imaging of her painful area. She indicates her pain is continuous, steady and constant, describes her pain as burning, shooting, aching, crushing, gnawing, throbbing, sharp, stabbing, tender, numbness and tingling; places current pain score 10/10, daily average at 10/10, worst pain has been is 10/10. The patient states that lying on her back exacerbates symptoms, weightbearing exacerbates symptoms, taking weight off and extending her upper back reducing the thoracic kyphosis improves pain. She has been referred to our service to discuss upper back pain. PAST MEDICAL HISTORY: 1. Rheumatic fever. 2. Bleeding tendencies. 3. Hypertension. 4. Chronic colon problems. 5. Degenerative joint disease. 6. Osteoarthritis. 7. Osteoporosis. 8. Peptic ulcer disease. 9. History of strokes. 10. Chronic anticoagulation. PAST SURGICAL HISTORY: 1. Total hip arthroplasty. 2. Back surgery. [facility] [address] [place] [address] PAIN MANAGEMENT CONSULTATION Name: HUGO DYER Room #: REG [facility]#: [id number] Admission: 11/29/17 Attend Phys: Андрей Blake DO Discharge: Date of : 32 Report #: [id number] SOCIAL HISTORY: The patient denies tobacco use. Denies IV or illicit drug use. She retired in 1979. She is not receiving workmen's compensation nor is she trying to obtain disability benefits. She is not in litigation in regards to pain. She is accompanied by family members present in room today. REVIEW OF SYSTEMS: Positive for decrease in appetite, fatigue and weakness, frequent and recurrent headaches, eye disease, wearing corrective eyewear, cataracts, hearing loss with tinnitus, shortness of breath with walking or lying flat, heart trouble, chest pain and angina, palpitations, appetite changes, bowel movement changes, nausea, vomiting, frequent diarrhea interspersed with constipation, peptic ulcer disease, frequent urination, nocturia, intermittent incontinence and dribbling to urine, hair and nail changes, varicose veins, breast pain, frequent and recurrent headaches, lightheadedness, dizziness, upper back pain status post fall, stroke, memory loss with confusion, depression, insomnia, excessive thirst and urination, heat or cold intolerance, slow to heal after cuts, bleeding and bruising tendencies due to anticoagulation and phlebitis. All other review of systems negative per 12-point review of systems other than those listed in history of present illness. PAIN IMPACT SCORE: 58/70 indicating severe interference of daily activities secondary to pain. ALLERGIES: IV CONTRAST AGENT, NIACIN, and DIPHENHYDRAMINE. CURRENT MEDICATIONS: Omeprazole 20 mg per day, amiodarone 200 mg once a day, Eliquis 2.5 mg twice a day, MagBid ER 84 mg once a day, Cortef 20 mg once a day, hydrocortisone 10 mg once a day, aspirin 325 mg per day, Centrum Silver 1 tab per day, furosemide 40 mg per day, spironolactone 25 mg per day, calcium carbonate 1 tab per day, hydrocodone 5/325 one tab every 4 hours p.r.n. for pain, metoprolol 25 mg per day, omega-3 fish oil 1 tab per day, atorvastatin 80 mg per day, levothyroxine 75 mcg a day, and lorazepam 0.5 mg p.o. at bedtime. IMAGING: No imaging of the area available. PQRS: The patient has osteoarthritis, no rheumatoid arthritis. She indicates pain intensity 10/10. The patient is a fall risk, had a fall just recently at her doctor's office, had a fall 2 weeks prior to her ER visit leading to instantaneous upper back pain. She is on blood thinners in the form of Eliquis. She is treated for hypertension. She is on opioids, has been on opioids for some time. She is at low risk for opioid addiction. Functional assessment/pain assessment tool 58/70 indicating severe. PHYSICAL EXAMINATION: VITAL SIGNS: Blood pressure 130/64, pulse 71, respiratory rate 16 and unlabored, the patient is 90% on room air, height 5 feet 3 inches tall, weight [facility] [address] [place] [address] PAIN MANAGEMENT CONSULTATION Name: HUGO DYER Room #: REG [facility]#: [id number] Admission: 11/29/17 Attend Phys: Андрей Blake DO Discharge: Date of : 32 Report #: [id number] 139 pounds, BMI calculated 24.6. GENERAL: Well-developed, well-nourished, well-hydrated, kyphotic 87-year-old female, appears her stated age, she is in moderate distress secondary to pain, placing current pain score at 10/10. HEENT: Normocephalic, atraumatic. Pupils are equal, round, and reactive to light. Extraocular muscles are intact. Sclerae are nonicteric without injection. NEUROLOGIC: Cranial nerves 2-12 are grossly intact. Speech fluent. The patient deemed a fair historian. LUNGS: Decreased breath sounds bilaterally. There is some minimal movement with inspiration and expiration due to guarding. CARDIOVASCULAR: Regular. No appreciable gallop or rub. ABDOMEN: Soft, nontender, and nondistended. EXTREMITIES: Show no clubbing and no cyanosis. There is noted ecchymotic lesions in the upper and lower extremities due to anticoagulation. MUSCULOSKELETAL: The patient has diffuse tenderness over the upper back directly over what appears to be the T6-T7 level by palpation. There are no changes in skin color or texture over the area. Deep inhalation and exhalation causes intensification of pain. Pain is improved with reduction of thoracic kyphosis, in fact near complete resolution of symptoms noted. Lower extremity strength and upper extremity strength are symmetrical, deconditioned bilaterally. Deep tenderness reflexes equal and symmetrical in upper and lower extremities, 2+/4. ASSESSMENT: 1. Thoracic pain. 2. Thoracic radiculopathy status post fall. 3. Osteoporosis (severe). 4. Myofascial pain. PLAN: 1. Based on today's physical exam, the history the patient was provided, the description the patient uses in regards to pain as well as the recent fall leading to instantaneous mid back pain, I am very concerned about a compression fracture in the area. The fall with the intense pain and radiation in a radicular component around the thoracic area is very concerning for fracture at the T6-T7 level by physical exam. I would strongly recommend the patient to undergo AP and lateral imaging at this time. I believe that the patient has a compression fracture secondary to this fall and there may even be a possibility of multiple compression fractures. Unfortunately, the patient did not have imaging of the painful area during her ER visit and has not yet been back to see her PCP for this imaging. We recommend the patient undergo the imaging as quickly as possible. I have written for AP and lateral thoracic imaging. If this does show compression fractures that I am concerned about, I would likely send the patient for MRI confirmation for age, so that if fractures are to be repaired, we would have the capability of doing so. [place] [address] PAIN MANAGEMENT CONSULTATION Name: MANISHABORAAUNG Meza Room #: REG [facility]#: [id number] Admission: 11/29/17 Attend Phys: Андрей Blake DO Discharge: Date of : 32 Report #: [id number] understanding our concern about the compression fractures and she is willing to look towards kyphoplasty/vertebroplasty to address the symptoms if necessary. We have taken the liberty of writing the x-ray imaging today. 2. I have recommended the patient increase her hydrocodone, currently she is taking a 5 mg dose up to 4 times a day, she is interspersing that with ibuprofen. I have advised the patient that ibuprofen should not be utilized while on Eliquis. I would recommend that she increase the hydrocodone to 2 tabs q.4-6 hours p.r.n. for pain, she has medication available, does not need refills of the medication at this time. She is to watch for side effects with this medication including somnolence, decrease in mental acuity, disorientation, confusion and constipation. If she notes any side effects, reduce the dose. 3. We have received the x-ray imaging back from our exam, it does show compression fractures at the T6 level. We recommend the patient move forward with thoracic MRI. This will be necessary for interventional radiology to provide vertebral augmentation procedure. The patient will undergo MRI as quickly as possible. Once the findings are obtained, we will then have the patient seen by interventional radiology to perform kyphoplasty. 4. We did advise the patient of other treatment options beyond kyphoplasty procedure with TLSO bracing or managing medically, the patient chose to move forward with the interventional treatment now that we have found this compression fracture as the likely source of the symptoms. The radiation of pain that she is experiencing appears to be related to this T6 fracture and should improve with the augmentation. She does not wish to look towards bracing system as she wishes this pain to be alleviated more rapidly. 5. We will help coordinate the patient through the kyphoplasty procedure. Once she has completed this procedure, she can return to her PCP for continuation of therapy. It is our pleasure to assist this patient in moving forward with a more definitive treatment she requests, which is the kyphoplasty procedure. We will help assist in getting the patient scheduled and through the procedure as rapidly as possible. <ELECTRONICALLY SIGNED> By: Андрей Blake DO 12/06/17 1400 0934 1154 Андрей Blake DO /manfred
[2017-11-29 12:46] VITALS: BP 130/64
== END ==
LOC: PAIN 07:00
DX: M81.0 Age-related osteoporosis without current pathological fracture (principal); M54.14 Radiculopathy, thoracic region; I10 Essential (primary) hypertension

== ENCOUNTER 2017-12-11 01:26 | Inpatient (IN) | payer OTHER, BC ==
[~2017-12-11] VITALS: Ht 160 cm; Wt 64.4 kg
--- NOTE | ~2017-12-11 | D ---
[facility] [place] [place] [address] DISCHARGE SUMMARY Name: HUGO DYER Derrick Room #: 427-P [facility] IN M.R.#: [id number] Admission: 12/11/17 Attend Phys: Florecita Collins MD Discharge: 12/15/17 Date of : 32 Report #: [id number] THIS REPORT FOR: //name// CC: Arvind Collins FINAL DIAGNOSES: 1. Acute kidney injury, resolved. 2. Nausea and vomiting, resolved. 3. Clostridium difficile colitis. 4. Vertebral compression fracture. 5. Paroxysmal atrial fibrillation. 6. Chronic anticoagulation. 7. Urinary tract infection. HOSPITAL COURSE: The patient was admitted with nausea and vomiting. She was treated symptomatically with IV fluids and support. Those symptoms cleared. Acute kidney injury resolved with discontinuation of diuretics and IV fluid support. She still had back pain and was treated with a back brace and narcotics, the issue was diagnosed at last hospital stay. Also, she was continued on her vancomycin. Urinary tract infection was treated as well. PHYSICAL EXAMINATION: On the day of discharge: GENERAL: She was awake and alert with stable vital signs. LUNGS: Clear. HEART: Regular. ABDOMEN: Soft, normoactive bowel sounds. EXTREMITIES: No edema. DISPOSITION: She will be discharged to [facility] for skilled rehabilitation, regular diet, activity as tolerated, PT and OT. I will follow her stay there. She will continue Cipro for 5 days, vancomycin for 2 weeks and her other usual medications including fentanyl patch and oxycodone as needed. She is to hold Lasix and Aldactone for now. <ELECTRONICALLY SIGNED> By: Fransisco Snyder MD 12/16/17 1058 1146 1218 Fransisco Snyder MD /nt
--- NOTE | ~2017-12-11 | H ---
[facility] [place] [address] [place] [address] HISTORY AND PHYSICAL Name: MANISHAHUGO Derrick Room #: 427-P [facility] IN M.R.#: [id number] Admission: 12/11/17 Attend Phys: Florecita Collins MD Discharge: 12/15/17 Date of : 32 Report #: [id number] THIS REPORT FOR: //name// CC: Arvind Collins ADDENDUM ASSESSMENT: 1. Intractable back pain. 2. Multiple thoracic vertebral fractures. 3. Urinary tract infection. 4. Possible pneumonia. 5. Adrenal insufficiency. 6. Acute kidney injury or acute renal failure. PLAN: To continue on IV fluids and start patient on IV Rocephin and try and control her nausea and vomiting with Zofran. Continue all home medications and the hydrocortisone and focus on pain control. <ELECTRONICALLY SIGNED> By: Florecita Collins MD 12/22/17 1307 0816 1209 Florecita Collins MD /nt
--- NOTE | ~2017-12-11 | H ---
[facility] [place] [address] [place] [address] HISTORY AND PHYSICAL Name: HUGO DYER Derrick Room #: 427-P [facility] IN M.R.#: [id number] Admission: 12/11/17 Attend Phys: Florecita Collins MD Discharge: 12/15/17 Date of : 32 Report #: [id number] THIS REPORT FOR: //name// CC: Arvind Collins DATE OF SERVICE: 12/11/2017 CHIEF COMPLAINT: Severe back pain. HISTORY OF PRESENT ILLNESS: The patient is an 87-year-old female, who presented to the Emergency Room with severe back pain and nausea, vomiting. The patient reports that the vomiting started last evening and was progressively getting worse. The patient was having increasing back pain for the last 7 days and was scheduled to get MRI of the back. She is noted to have multiple compression fractures of the thoracic and lumbar spine secondary to a fall. The patient was started on oxycodone and fentanyl patch. Due to the increasing pain and nausea, vomiting, she has been admitted to the hospital. PAST MEDICAL HISTORY: Significant for history of rheumatic fever, back surgery, hypertension, gallbladder disease and hip replacement. Currently being a mention of atrial fibrillation and adrenaline insufficiency. PAST SURGICAL HISTORY: Hip replacement. ALLERGIES: She is known to be allergic to CONTRAST DYE, BENADRYL and NIACIN. MEDICATIONS: She was currently on was oxycodone 5 mg every 4 hours p.r.n., fentanyl patch 25 mcg q.72 hours, metoprolol 25 mg daily, levothyroxine 75 mcg daily, atorvastatin, spironolactone, hydrocortisone, apixaban, amiodarone and omeprazole. SOCIAL HISTORY: She does not smoke, does not drink alcohol. She was living independently. REVIEW OF SYSTEMS: The patient denied having any abdominal pain, no chest pain or breathing difficulty. No headache or any focal weakness. PHYSICAL EXAMINATION: GENERAL: Pleasant lady who was in moderate distress secondary to her back pain. VITAL SIGNS: She was febrile with a temperature of 38.2, pulse of 92, respiratory rate 20, blood pressure 119/56, oxygen saturation 98%. HEENT: Skull was atraumatic. There was mild pallor. Mucosa was dry. NECK: Supple. LUNGS: Clear to auscultation bilaterally with no wheezing or crackles. HEART: First and second heart sounds[place] [address] HISTORY AND PHYSICAL Name: HUGO DYER Room #: 427-P [facility] IN .R.#: [id number] Admission: 12/11/17 Attend Phys: Florecita Collins MD Discharge: 12/15/17 Date of : 32 Report #: [id number] ABDOMEN: Soft, nontender, bowel sounds were sluggish. The patient had central back tenderness. MUSCULOSKELETAL: The patient had proximal muscle weakness. NEUROLOGIC: Nonfocal. LABORATORY DATA: On admission showed a sodium of 131, potassium of 3.5, chloride of 96, bicarbonate of 24, BUN of 19, creatinine of 2.4, glucose was 108. The white cell count was 15.4; hemoglobin 10.7; hematocrit 32.5 and a platelet count of 162,000. UA was positive. Chest x-ray was atelectasis in the right lower lobe, trace pleural effusion bilaterally. CT showed multiple fluid small bowel, no acute bowel obstruction and prominent atelectasis changes versus infiltrates in both lung bases. PLAN: To start patient on IV Rocephin and continue IV fluids for now and focus on pain control and continue Zofran if needed for nausea, vomiting. ADDENDUM ASSESSMENT: 1. Intractable back pain. 2. Multiple thoracic vertebral fractures. 3. Urinary tract infection. 4. Possible pneumonia. 5. Adrenal insufficiency. 6. Acute kidney injury or acute renal failure. PLAN: To continue on IV fluids and start patient on IV Rocephin and try and control her nausea and vomiting with Zofran. Continue all home medications and the hydrocortisone and focus on pain control. <ELECTRONICALLY SIGNED> By: Florecita Collins MD 12/22/17 1307 0814 0837 Florecita Collins MD /nt
--- NOTE | ~2017-12-11 | EKG ---
[facility] [address] [place] [address] ELECTROCARDIOGRAM REPORT Name: HUGO DYER Room #: 427-P ADM IN M.R.#: [id number] Admission: 12/11/17 Attend Phys: Florecita Collins MD Discharge: Date of : 32 Report #: [id number] THIS REPORT FOR: //name// [facility] ED Test Date: 2017-12-11 Test Time: 03:27:09 Pat Name: HUGO DYER Department: Room: Gender: F Homicide Investigator: RENÉE : 1930 Requested By: Rebel Mendez Order Number: [id number] MD: Justo Owen Measurements Intervals [place] Rate: 87 P: 10 TX: 190 QRS: -11 QRSD: 85 T: 44 QT: 367 QTc: 442 Interpretive Statements Sinus rhythm Anteroseptal infarct, age indeterminate Compared to ECG 11/26/2017 08:26:56 septal Q waves are now present Electronically Signed On 12-12-2017 9:16:34 CDT by Justo Owen [email or web address] <ELECTRONICALLY SIGNED> By: Justo Owen MD, [facility] 12/12/17 0916 0327 0327 Justo Owen MD, [facility] /EPI
[~2017-12-11 01:26] MED LIST changes: -ALBUTEROL2.5 MG/0.5 INH; -ASPIR 8181 MG PO; -CIPRO500 MG PO; -CLOTRIMAZOLE10 MG DISSOLVE
[2017-12-11 01:30] VITALS: BP 137/52
[2017-12-11 01:52] LABS: ABSOLUTE NEUTROPHILS 11.5 thou/uL (1.4-8.2); BASOPHILS 0.3 % (0.0-2.0); EOSINOPHILS 1.4 % (0.0-3.0); HEMATOCRIT 32.5 % (37.0-47.0); HEMOGLOBIN 10.7 gm/dL (12.0-15.0); LYMPHOCYTES 13.9 % (24.0-44.0); MCH 30.8 pg (26.0-34.0); MCV 93.5 fL (80.0-100.0); MONOCYTES 9.6 % (1.0-8.0); PLATELET COUNT 285 thou/uL (150-400); POLYS 74.8 % (36.0-66.0); RBC 3.48 mil/uL (4.20-5.00); RDW 16.2 % (10.5-14.5); WBC 15.4 thou/uL (4.0-11.0)
[2017-12-11 02:05] LABS: CALCIUM 9.4 mg/dL (8.5-10.1); POTASSIUM 3.5 mmol/L (3.5-5.1)
[2017-12-11 02:09] LABS: CREATININE 2.4 mg/dL (0.6-1.0)
[2017-12-11 02:19] LABS: ALBUMIN 3.5 g/dL (3.4-5.0)
[2017-12-11 02:43] LABS: URINE BILIRUBIN NEGATIVE (Negative); URINE BLOOD NEGATIVE (Negative); URINE CLARITY CLEAR; URINE COLOR YELLOW; URINE GLUCOSE-RANDOM* NEGATIVE (Negative); URINE KETONES NEGATIVE (Negative); URINE NITRITE-REFLEX NEGATIVE (Negative); URINE PROTEIN (DIPSTICK) TRACE (Negative); URINE UROBILINOGEN 0.2 E.U./dl (0.2-1.0)
[2017-12-11 02:44] LABS: URINE LEUKOCYTES-REFLEX 2+ (Negative)
[2017-12-11 02:54] LABS: HYALINE CASTS 0-3 Few /LPF (None Seen); MUCUS 0-3 Light strn/LPF (None Seen); SQUAMOUS 4-10 Moderate /LPF (0-3); URINE WBC-REFLEX 6-15 Few /HPF (0-5)
[2017-12-11 02:55] LABS: BACTERIA-REFLEX 1-9 Few /HPF (None Seen); RENAL EPITHELIAL CELLS 0-3 Few /LPF (None Seen); TRANSITIONAL EPITHEL CELL 4-10 Moderate /LPF (None Seen); URIC ACID CRYSTALS 0-3 Few /LPF (None Seen); URINE RBC None Seen /HPF (0-2)
[2017-12-11 04:13] VITALS: BP 116/49
[2017-12-11 04:30] VITALS: BP 119/56
[2017-12-11] MEDS ORDERED: CALCIUM 600 +1 EAC1 PO (05:49)
[2017-12-11] MEDS ORDERED: LASIX 40 MG TAB40 M2 PO (05:50)
[2017-12-11] MEDS ORDERED: ASPIR 8181 MG PO (05:51)
[2017-12-11 08:20] VITALS: BP 133/63
[2017-12-11 20:08] VITALS: BP 112/49
[2017-12-12 03:58] VITALS: BP 116/57
[2017-12-12 06:02] LABS: ABSOLUTE NEUTROPHILS 6.9 thou/uL (1.4-8.2); BASOPHILS 0.2 % (0.0-2.0); EOSINOPHILS 3.1 % (0.0-3.0); HEMATOCRIT 26.4 % (37.0-47.0); HEMOGLOBIN 8.8 gm/dL (12.0-15.0); LYMPHOCYTES 9.1 % (24.0-44.0); MCH 31.6 pg (26.0-34.0); MCHC 33.4 g/dL (28.0-37.0); MCV 94.8 fL (80.0-100.0); MONOCYTES 9.2 % (1.0-8.0); POLYS 78.4 % (36.0-66.0); RBC 2.78 mil/uL (4.20-5.00); RDW 16.6 % (10.5-14.5); WBC 8.8 thou/uL (4.0-11.0)
[2017-12-12 06:03] LABS: CALCIUM 8.6 mg/dL (8.5-10.1); POTASSIUM 3.7 mmol/L (3.5-5.1)
[2017-12-12 06:07] LABS: CREATININE 1.2 mg/dL (0.6-1.0)
[2017-12-12 06:14] LABS: PLATELET COUNT 189 thou/uL (150-400)
[2017-12-12 07:15] VITALS: BP 112/49
[2017-12-12 20:27] VITALS: BP 134/59
[2017-12-13 06:20] LABS: HEMATOCRIT 24.7 % (37.0-47.0); HEMOGLOBIN 8.3 gm/dL (12.0-15.0); MCH 31.4 pg (26.0-34.0); MCHC 33.5 g/dL (28.0-37.0); MCV 93.7 fL (80.0-100.0); RBC 2.63 mil/uL (4.20-5.00); RDW 16.4 % (10.5-14.5); WBC 8.9 thou/uL (4.0-11.0)
[2017-12-13 06:49] LABS: CALCIUM 8.5 mg/dL (8.5-10.1); POTASSIUM 3.6 mmol/L (3.5-5.1)
[2017-12-13 07:20] VITALS: BP 114/51
[2017-12-13 15:27] VITALS: BP 117/50
[2017-12-13 19:19] VITALS: BP 118/55
[2017-12-14 04:28] VITALS: BP 129/66
[2017-12-14 04:38] VITALS: BP 112/76
[2017-12-14 07:20] VITALS: BP 130/60
[2017-12-14 15:55] VITALS: BP 118/61
[2017-12-14 19:24] VITALS: BP 124/52
[2017-12-15 04:04] VITALS: BP 123/60
[2017-12-15 06:18] LABS: HEMATOCRIT 25.9 % (37.0-47.0); HEMOGLOBIN 8.8 gm/dL (12.0-15.0); MCH 31.5 pg (26.0-34.0); MCV 92.7 fL (80.0-100.0); RBC 2.8 mil/uL (4.20-5.00); RDW 16.1 % (10.5-14.5)
[2017-12-15 06:31] LABS: CALCIUM 8.7 mg/dL (8.5-10.1)
[2017-12-15 07:00] VITALS: BP 132/52
[2017-12-15] MEDS ORDERED: CIPRO500 MG PO (11:37)
[2017-12-15] MEDS ORDERED: OXYCODONE HCL 55 MG PO (11:38)
[2017-12-15] MEDS ORDERED: VANCOMYCIN HCL10 GM PO (11:38)
[2017-12-15] MEDS ORDERED: ALBUTEROL2.5 MG/0.5 INH (11:38)
[2017-12-15] MEDS ORDERED: DURAGESIC25 MCG/HR TRANSDERM (11:38)
[2017-12-15] MEDS ORDERED: CLOTRIMAZOLE10 MG DISSOLVE (11:42)
== END 2017-12-15 14:48 | DRG 871 ==
LOC: ER 01:26 → 4E 03:15 → EROBS 03:15 → 4E 04:14
PROVIDERS: Emergency Medicine; Internal Medicine; Internal Medicine Geriatric Medicine
DX: A41.9 Sepsis, unspecified organism (principal); N17.0 Acute kidney failure with tubular necrosis; N39.0 Urinary tract infection, site not specified; A04.72 Enterocolitis due to Clostridium difficile, not specified as recurrent; M48.50XA Collapsed vertebra, not elsewhere classified, site unspecified, initial encounter for fracture; E27.40 Unspecified adrenocortical insufficiency; M48.54XA Collapsed vertebra, not elsewhere classified, thoracic region, initial encounter for fracture; I48.0 Paroxysmal atrial fibrillation; Z96.649 Presence of unspecified artificial hip joint; I10 Essential (primary) hypertension; Z88.8 Allergy status to other drugs, medicaments and biological substances; Z88.1 Allergy status to other antibiotic agents; Z91.041 Radiographic dye allergy status; Z79.01 Long term (current) use of anticoagulants; Z90.49 Acquired absence of other specified parts of digestive tract; Z95.5 Presence of coronary angioplasty implant and graft
CPT/HCPCS: 10183

== ENCOUNTER 2018-02-03 10:33 | Inpatient (IN) | payer OTHER, BC ==
[~2018-02-03] VITALS: Ht 157.5 cm; Wt 58.1 kg
--- NOTE | ~2018-02-03 | D ---
[facility] [place] [address] [place] [address] DISCHARGE SUMMARY Name: HUGO DYER Derrick Room #: 430-P [facility] IN M.R.#: [id number] Admission: 02/03/18 Attend Phys: Fransisco Snyder MD Discharge: 02/08/18 Date of : 32 Report #: [id number] THIS REPORT FOR: //name// CC: Arvind Snyder DATE OF SERVICE: 02/08/2018 SUMMARY FINAL DIAGNOSES: 1. Healthcare-associated pneumonia. 2. [id number] diastolic heart failure. 3. Aortic stenosis. 4. Atrial fibrillation. 5. Multiple right rib fractures. 6. Adrenal insufficiency. 7. Acute hypoxic respiratory failure. HOSPITAL COURSE: The patient was admitted to the ER after a fall at home, where she fractured multiple ribs on the right side. She was treated conservatively during the course of her stay. I spoke to her at the time of admission about code status given instability of her chest and she understood and agreed with Do Not Resuscitate status. She would not tolerate or respond advanced CPR with chest compressions. Gradually over the course of her admission, her respiratory status deteriorated. She developed significant hypoxic respiratory failure. Diuretics, antibiotics, pulmonary treatments, all were initiated without improvement. On 02/06/2018, I spoke to the nurse and her daughter via phone. Ultimately, the patient had expressed wishes for palliative care and was continuously removing her oxygen mask. Her daughter understood the significant nature of her illness and risk of her baseline conditions and understood the patient's request for palliative care. Supportive measures continued and even the attempt of BiPAP, which she only tolerated for a few hours and then removed. Through the course of overnight and junior copywriter hours on 02/08/2018, she was expressing wishes just for comfort. She was removing both the BiPAP mask and nonrebreather mask. She was less alert and very hypoxic. Ultimately, she from her underlying cardiopulmonary conditions in the junior copywriter hours of 02/08/2018. The family declined referral of her case to the director global medical affairs and did not wish autopsy. <ELECTRONICALLY SIGNED> By: Fransisco Snyder MD 02/09/18 1024 1247 1405 Fransisco Snyder MD /nt
--- NOTE | ~2018-02-03 | EKG ---
[address] [employer] [place] [address] ELECTROCARDIOGRAM REPORT Name: HUGO DYER Room #: 430-P ADM IN M.R.#: [id number] Admission: 02/03/18 Attend Phys: Fransisco Snyder MD Discharge: Date of : 32 Report #: [id number] THIS REPORT FOR: //name// [facility] Test Date: 2018-02-06 Test Time: 12:05:37 Pat Name: HUGO DYER Department: Room: 430 P Gender: F Lining Layer: Sal BRUNER : 1930 Requested By: Fransisco Snyder Order Number: [id number] MD: Justo Owen Measurements Intervals [place] Rate: 102 P: 33 NM: 178 QRS: 0 QRSD: 84 T: 4 QT: 320 QTc: 417 Interpretive Statements Sinus tachycardia Probable left atrial enlargement Borderline T abnormalities, inferior leads Compared to ECG 12/11/2017 03:27:09 Heart rate has increased Electronically Signed On 02-07-2018 8:37:40 CDT by Justo Owen [email or web address] <ELECTRONICALLY SIGNED> By: Justo Owen MD, [facility] 02/07/18 0837 04 Justo Owen MD, [facility] /EPI
--- NOTE | ~2018-02-03 | H ---
[facility] [place] [address] HISTORY AND PHYSICAL Name: HUGO DYER Room #: 430-P ADM IN M.R.#: [id number] Admission: 02/03/18 Attend Phys: Fransisco Snyder MD Discharge: Date of : 34 Report #: [id number] THIS REPORT FOR: //name// CC: Arvind Snyder DATE OF SERVICE: 02/03/2018 CHIEF COMPLAINT: Right-sided chest pain. HISTORY OF PRESENT ILLNESS: The patient is an 88-year-old female with multiple medical problems who came to the Emergency Room after a fall. She got up swine nutritionist today and said she lost her balance, had an issue with her walker and she fell over on her right side onto a bedside table. She had a lot of pain and difficulty walking. Her family found her sitting on the floor next to the bed for an unknown length of time and they brought her to the Emergency Room. A CT of the chest has revealed multiple fractures to the right ribs. PAST MEDICAL HISTORY: Chronic diastolic heart failure, paroxysmal atrial fibrillation. I believe she has a degree of aortic stenosis, hypertension, chronic adrenal insufficiency, on steroid replacement, multiple vertebral compression fractures, recent C. diff colitis. PAST SURGICAL HISTORY: Cholecystectomy. FAMILY HISTORY: Noncontributory. SOCIAL HISTORY: She lives at home with family. No chronic alcohol or tobacco use. She is on home O2. MEDICATIONS: Aspirin, Levoxyl, Cortef, Aldactone, Demadex, hydrocodone, amiodarone, omeprazole, Toprol. She had previously been on a fentanyl patch, but I believe that has been discontinued. ALLERGIES: BENADRYL, NIACIN, AND CONTRAST DYE. REVIEW OF SYSTEMS: She denies headache, chest pain, shortness of breath, abdominal pain, nausea, vomiting, diarrhea, constipation, dysuria, syncope. OBJECTIVE: VITAL SIGNS: Temperatures 37.9, pulse 58, respirations 18, blood pressure 130/52, O2 sat 94-100% on 2 liters of oxygen. GENERAL: She is awake and alert, in no distress. HEAD AND NECK: Unremarkable. LUNGS: Clear anteriorly. She is tender on the right chest wall. She has air movement bilaterally. [facility] [address] [place] [address] HISTORY AND PHYSICAL Name: HUGO DYER Room #: 430-P [facility] IN [facility].#: [id number] Admission: 02/03/18 Attend Phys: Fransisco Snyder MD Discharge: Date of : 34 Report #: [id number] HEART: Regular with a systolic murmur. ABDOMEN: Soft, normoactive bowel sounds. EXTREMITIES: 1-2+ lower extremity edema. NEUROLOGIC: Global strength 3/5 throughout. LABORATORY DATA: Pertinent labs included a white count of 20, 80% segs, albumin 2.6. ASSESSMENT: 1. Multiple right rib fractures, acute. 2. Paroxysmal atrial fibrillation. 3. Chronic diastolic heart failure. 4. Moderate protein-calorie malnutrition, albumin 2.6. 5. Leukocytosis. 6. Chronic adrenal insufficiency. PLAN: For now, it will to be a conservative treatment protocol given the multiple comminuted fractures in multiple locations. I really do not see a role for surgical intervention at this point, plus her advanced age and other comorbidities. The white count may be reactive to the fractures. She was just treated for C. diff within the last 2 months, so I have to avoid empiric antibiotics unless she develops fever or if cultures reveal an organism. In the meantime, I will repeat lab work. I have also discussed with her DNR status because of the fractures and her frailty along with comorbidities, and she agrees to do not resuscitate while in the hospital. <ELECTRONICALLY SIGNED> By: Fransisco Snyder MD 02/06/18 1251 [id number] 1721 Fransisco Snyder MD /nt
--- NOTE | ~2018-02-03 | HC ---
[facility] [place] [address] CONSULTATION Name: HUGO DYER Room #: 430-P [facility] IN M.R.#: [id number] Admission: 02/03/18 Attend Phys: Fransisco Snyder MD Discharge: Date of : 34 Report #: [id number] THIS REPORT FOR: //name// CC: Arvind Snyder DATE OF SERVICE: 02/06/2018 CHIEF COMPLAINT: Traumatic wounds to the lower extremities. HISTORY OF PRESENT ILLNESS: This is an 88-year-old female patient admitted through the Emergency Department. She apparently had fallen after having gotten up early in the morning and having lost her balance. She fell over on her right side. She sustained multiple rib fractures. She has also had traumatic wounds to her legs and I have been asked to see her with regard to wound care. PAST MEDICAL HISTORY: Positive for chronic diastolic heart failure, paroxysmal atrial fibrillation, aortic stenosis, hypertension, chronic adrenal insufficiency, multiple vertebral fractures and recent history of C. diff enterocolitis, previous cholecystectomy. FAMILY HISTORY: Noncontributory. SOCIAL HISTORY: She lives at home with her family. No history of alcohol or tobacco use. MEDICATIONS: Include aspirin, Levoxyl, Cortef, Aldactone, Demadex, hydrocodone, amiodarone, omeprazole, Toprol, fentanyl patch. ALLERGIES: BENADRYL, NIACIN, AND CONTRAST DYE. REVIEW OF SYSTEMS: CONSTITUTIONAL: The patient denies fever, chills or weight loss. NEUROLOGICAL: The patient denies focal weakness. ENT: The patient denies earache, nasal drainage or sore throat. CARDIOVASCULAR: The patient denies chest pain, palpitations, or diaphoresis. PULMONARY: The patient denies cough or shortness of breath. GASTROINTESTINAL: The patient denies nausea, vomiting or abdominal pain. ORTHOPEDIC: The patient notes pain in her chest wall as well as bilateral lower extremities. Other systems in a 14-point review of systems are negative. PHYSICAL EXAMINATION: VITAL SIGNS: At this time include pulse rate 90, respiratory rate of 20, blood pressure 116/70, temperature 98.0. GENERAL: This is a chronically ill-appearing female patient who appears to be in no distress. [address] [address] CONSULTATION Name: HUGO DYER Room #: 430-P [facility] IN M.R.#: [id number] Admission: 02/03/18 Attend Phys: Fransisco Snyder MD Discharge: Date of : 34 Report #: [id number] HEENT: Head is normocephalic. Nose and throat are clear. NECK: Supple. LUNGS: Diminished. HEART: Irregular. Chest wall is mildly tender. ABDOMEN: Soft, nontender. Pelvis is stable to compression and distraction. EXTREMITIES: Lower extremities demonstrate diminished distal pulses, although feet appear to be warm and well perfused. She has a small skin tear on the right pretibial region with reasonably well opposed wound edges and no evidence of infection. On the left side, there is a large flap type tear or laceration with moderate necrotic tissue. This is teased away with tissue forceps and 4 x 4s, revealing a clean base. CLINICAL IMPRESSION: 1. Traumatic wounds to the right lower extremity and left lower extremity following a fall. 2. Multiple rib fractures following a fall. 3. Paroxysmal atrial fibrillation. 4. Adrenal insufficiency. 5. Leukocytosis. RECOMMENDATIONS: At this point in time, we will recommend a bordered foam to the right lower extremity to be changed on a Tuesday, Tuesday, Tuesday basis. On the left side, we will use Xeroform gauze, 4 x 4s and Conform gauze to be changed Tuesday, Tuesday, Tuesday as well. Elevation to control edema would be appropriate, recommend nutritional evaluation to maximize wound healing. I appreciate having been asked to see her in consultation. <ELECTRONICALLY SIGNED> By: Alex Rodriguez MD 02/07/18 1522 [id number] 2224 Alex Rodriguez MD /nt
[~2018-02-03 10:33] MED LIST changes: +ALBUTEROL2.5 MG/0.5 INH; +ASPIR 8181 MG PO; +CIPRO500 MG PO; +CLOTRIMAZOLE10 MG DISSOLVE
[2018-02-03 10:34] VITALS: BP 141/75
[2018-02-03] MEDS ORDERED: ALDACTONE50 MG PO (10:50)
[2018-02-03] MEDS ORDERED: DEMADEX20 MG PO (10:51)
[2018-02-03] MEDS ORDERED: HYDROCODONE-AP1 EAC6 PO (10:52)
[2018-02-03 10:55] LABS: HEMATOCRIT 31.2 % (37.0-47.0); HEMOGLOBIN 10.2 gm/dL (12.0-15.0); MCH 29.4 pg (26.0-34.0); MCHC 32.6 g/dL (28.0-37.0); MCV 90.2 fL (80.0-100.0); PLATELET COUNT 369 thou/uL (150-400); RBC 3.46 mil/uL (4.20-5.00); RDW 18.7 % (10.5-14.5); WBC 20.7 thou/uL (4.0-11.0)
[2018-02-03 11:04] LABS: CALCIUM 8.8 mg/dL (8.5-10.1); CREATININE 1.2 mg/dL (0.6-1.0); POTASSIUM 3.8 mmol/L (3.5-5.1)
[2018-02-03 11:11] LABS: ALBUMIN 2.6 g/dL (3.4-5.0); DIRECT BILIRUBIN 0.1 mg/dL (<0.1-0.3); TOTAL BILIRUBIN 0.4 mg/dL (<0.1-1.0); TOTAL PROTEIN 6.2 g/dL (6.4-8.2)
[2018-02-03 11:31] LABS: ABSOLUTE NEUTROPHILS 16.6 thou/uL (1.4-8.2)
[2018-02-03 11:32] LABS: ANISOCYTOSIS 2+; OVALOCYTES 1+; POLYCHROMASIA OCCASIONAL
[2018-02-03 12:04] LABS: URINE BILIRUBIN NEGATIVE (Negative); URINE BLOOD NEGATIVE (Negative); URINE CLARITY CLEAR; URINE COLOR YELLOW; URINE GLUCOSE-RANDOM* NEGATIVE (Negative); URINE KETONES NEGATIVE (Negative); URINE LEUKOCYTES NEGATIVE (Negative); URINE NITRITE NEGATIVE (Negative); URINE PROTEIN (DIPSTICK) NEGATIVE (Negative); URINE SPECIFIC GRAVITY <= 1.005 (1.005-1.035); URINE UROBILINOGEN 0.2 E.U./dl (0.2-1.0)
[2018-02-03 12:49] VITALS: BP 120/43
[2018-02-03 13:35] VITALS: BP 130/52
[2018-02-03 14:23] VITALS: BP 130/52
[2018-02-03 16:01] VITALS: BP 130/52
[2018-02-03 20:40] VITALS: BP 139/59
[2018-02-04 04:11] LABS: MCHC 33.4 g/dL (28.0-37.0); MCV 89.8 fL (80.0-100.0); RBC 2.83 mil/uL (4.20-5.00); RDW 18.7 % (10.5-14.5); WBC 12.7 thou/uL (4.0-11.0)
[2018-02-04 04:13] LABS: HEMATOCRIT 25.5 % (37.0-47.0); HEMOGLOBIN 8.52 gm/dL (12.0-15.0)
[2018-02-04 04:20] LABS: CREATININE 0.8 mg/dL (0.6-1.0); POTASSIUM 4.1 mmol/L (3.5-5.1)
[2018-02-04 05:39] VITALS: BP 137/64
[2018-02-04 09:27] VITALS: BP 130/60
[2018-02-04 20:53] VITALS: BP 91/50
[2018-02-05 05:17] VITALS: BP 100/54
[2018-02-05 07:30] VITALS: BP 125/64
[2018-02-05 16:38] VITALS: BP 98/39
[2018-02-05 16:51] VITALS: BP 102/53
[2018-02-05 20:05] VITALS: BP 93/51
[2018-02-06 05:00] VITALS: BP 109/59
[2018-02-06 08:03] VITALS: BP 111/55
[2018-02-06 11:52] LABS: BE(vivo) 5.2 mmol/L (-2 to +3); HCO3 29.1 mmol/L (22.0-26.0); PCO2 40.2 mmHg (35.0-45.0); PO2 59.9 mmHg (80.0-100.0); pH 7.478 (7.360-7.450); sO2 92.6 % (92.0-98.0)
[2018-02-06 15:33] VITALS: BP 116/70
[2018-02-06 19:52] VITALS: BP 120/70
[2018-02-07 05:21] VITALS: BP 108/62
[2018-02-07 06:10] LABS: HEMATOCRIT 28.1 % (37.0-47.0); HEMOGLOBIN 9.2 gm/dL (12.0-15.0); MCH 29.4 pg (26.0-34.0); MCHC 32.8 g/dL (28.0-37.0); MCV 89.4 fL (80.0-100.0); RBC 3.15 mil/uL (4.20-5.00); RDW 19.2 % (10.5-14.5); WBC 21.1 thou/uL (4.0-11.0)
[2018-02-07 06:28] LABS: CALCIUM 8.3 mg/dL (8.5-10.1); CREATININE 1.1 mg/dL (0.6-1.0); POTASSIUM 3.9 mmol/L (3.5-5.1)
[2018-02-07 07:36] VITALS: BP 115/65
[2018-02-07 11:00] VITALS: BP 112/56
[2018-02-07 16:22] VITALS: BP 110/62
[2018-02-07 19:26] VITALS: BP 91/51
[2018-02-08 04:00] VITALS: BP 104/57
[2018-02-08 05:35] LABS: HEMATOCRIT 29.4 % (37.0-47.0); HEMOGLOBIN 9.4 gm/dL (12.0-15.0); MCH 28.8 pg (26.0-34.0); MCV 89.9 fL (80.0-100.0); RBC 3.27 mil/uL (4.20-5.00); RDW 19.1 % (10.5-14.5); WBC 26.1 thou/uL (4.0-11.0)
[2018-02-08 05:40] LABS: CALCIUM 8.4 mg/dL (8.5-10.1); CREATININE 1.3 mg/dL (0.6-1.0); POTASSIUM 3.8 mmol/L (3.5-5.1)
== END 2018-02-08 11:48 | DRG 183 ==
LOC: ER 10:33 → EROBS 12:26 → 4E 12:26
PROVIDERS: Emergency Medicine; Internal Medicine Geriatric Medicine
PROC: 5A09357 Assistance with Respiratory Ventilation, Less than 24 Consecutive Hours, Continuous Positive Airway Pressure (ICD-10-PCS; principal; 2018-02-07)
DX: S22.41XA Multiple fractures of ribs, right side, initial encounter for closed fracture (principal); N17.0 Acute kidney failure with tubular necrosis; J18.9 Pneumonia, unspecified organism; J96.01 Acute respiratory failure with hypoxia; R65.11 Systemic inflammatory response syndrome (SIRS) of non-infectious origin with acute organ dysfunction; I50.33 Acute on chronic diastolic (congestive) heart failure; S22.009A Unspecified fracture of unspecified thoracic vertebra, initial encounter for closed fracture; E44.0 Moderate protein-calorie malnutrition; E27.40 Unspecified adrenocortical insufficiency; Z66 Do not resuscitate; S40.011A Contusion of right shoulder, initial encounter; I48.0 Paroxysmal atrial fibrillation; I11.0 Hypertensive heart disease with heart failure; Y95 Nosocomial condition; I35.0 Nonrheumatic aortic (valve) stenosis; W18.09XA Striking against other object with subsequent fall, initial encounter; Z79.82 Long term (current) use of aspirin; Z90.49 Acquired absence of other specified parts of digestive tract; Z79.899 Other long term (current) drug therapy; Y93.89 Activity, other specified; Y92.098 Other place in other non-institutional residence as the place of occurrence of the external cause; Y99.8 Other external cause status; Z88.8 Allergy status to other drugs, medicaments and biological substances; Z91.041 Radiographic dye allergy status; Z68.23 Body mass index [BMI] 23.0-23.9, adult; Z51.5 Encounter for palliative care
CPT/HCPCS: 10183